=== PATIENT | female | born 1955 | race Caucasian/White ===

== ENCOUNTER 2016-08-12 15:01 | Day surgery (SDC) | payer OTHER ==
[~2016-08-12 15:01] MED LIST: Kenalog-40 IJ ONE; Sensorcaine 0.25% 10 ML IJ ONE
[2016-08-12 17:58] VITALS: BP 130/84; PULSE 61; O2SAT 100
--- NOTE | 2016-08-12 21:07 | XRAY ---
Indication: Left L2-L5 MBB. Intraoperative fluoroscopy was provided for 12 seconds. 1 digital spot image submitted for interpretation demonstrates posterior spinal needles with the tips projecting over the expected course of the left L2-L5 nerve roots. Correlate with intraoperative findings/report.
--- NOTE | 2016-08-13 08:43 | XRAY ---
12 seconds fluoroscopy time in surgery for left LMBB L2-L5.
== END 2016-08-12 19:30 | disposition home or self-care (01) ==
LOC: SDC-PAIN 15:01
PROVIDERS: ATTEND Pain Medicine Interventional Pain Medicine
DX: M47.26 Other spondylosis with radiculopathy, lumbar region (principal); M54.16 Radiculopathy, lumbar region; M51.26 Other intervertebral disc displacement, lumbar region
CPT/HCPCS: 64494; 64495; 64508; 72020; 77003; J3301

== ENCOUNTER 2016-10-07 12:55 | Day surgery (SDC) | payer OTHER ==
[~2016-10-07 12:55] MED LIST changes: +DIPRIVAN 200 MG/20 ML IV ONE; +KEFZOL 1 GM IV ONE; -Kenalog-40 IJ ONE; +Kenalog-40 IM ONE; +Lactated Ringers IV ONE; +SUBLIMAZE 100 MCG/2 ML IV ONE; +TORAdol 30 mg Injection IV ONE; +Xylocaine 1% Vial 30 ML PF IJ ONE
--- NOTE | 2016-10-07 16:35 | XRAY ---
27 seconds of fluoroscopy was used in surgery for a left RFA L2-L5.
--- NOTE | 2016-10-07 16:36 | XRAY ---
Indication: Left L2-L5 RFA. Intraoperative fluoroscopy was provided for 27 seconds. 2 digital spot images submitted for interpretation demonstrates 4 posterior spinal needles with the tips projecting adjacent to the left L3-S1 superior facets. Correlate with intraoperative findings/report.
== END 2016-10-07 15:15 | disposition home or self-care (01) ==
LOC: SDC-PAIN 12:55
PROVIDERS: ATTEND Pain Medicine Interventional Pain Medicine
DX: M47.26 Other spondylosis with radiculopathy, lumbar region (principal); M54.16 Radiculopathy, lumbar region; M51.26 Other intervertebral disc displacement, lumbar region; Z79.891 Long term (current) use of opiate analgesic
CPT/HCPCS: 01936; 64635; 64636; 72100; 77003; J0690; J1885; J2001; J2704; J3010; J3301

== ENCOUNTER 2016-11-04 07:34 | Day surgery (SDC) | payer OTHER ==
[~2016-11-04 07:34] MED LIST changes: -DIPRIVAN 200 MG/20 ML IV ONE; -KEFZOL 1 GM IV ONE; -Kenalog-40 IM ONE; +Lactated Ringers 1,000 ML IV ONE; +Lactated Ringers 1,000 ML IV SCH; -Lactated Ringers IV ONE; -SUBLIMAZE 100 MCG/2 ML IV ONE; -Sensorcaine 0.25% 10 ML IJ ONE; -TORAdol 30 mg Injection IV ONE; -Xylocaine 1% Vial 30 ML PF IJ ONE
[2016-11-04] MEDS ORDERED: DIPRIVAN 200 MG/20 ML IV ONE (08:30)
[2016-11-04] MEDS ORDERED: Ketamine HCl 50 MG/ML IV ONE (08:30)
[2016-11-04 10:00] VITALS: PULSE 53; O2SAT 97
[2016-11-04 10:22] VITALS: BP 112/58
--- NOTE | 2016-11-05 08:07 | OP ---
PROCEDURE DATE/TIME: 11/04/2016 0833 PREOPERATIVE DIAGNOSES: 1) Screening colonoscopy. 2) History of polyps. POSTOPERATIVE DIAGNOSES: 1) Colonic polyp. 2) Mild hemorrhoidal disease. 3) Mild diverticular disease. PROCEDURES: 1) Colonoscopy with hot forceps polypectomy x3. 2) Hot snare polypectomy x1. PROCEDURE PERFORMED BY: Neena Silvestre M.D. ANESTHESIA: MAC. ESTIMATED BLOOD LOSS: Minimal. COMPLICATIONS: None. SPECIMENS: 1) Sigmoid polyp x3. 2) Rectal polyp x1. HISTORY: This is a 61 year-old female who presents for screening colonoscopy. She does have a history of polyps. All risks, benefits, alternatives to colonoscopy as well as the procedure details were discussed with the patient in detail personally and she agreed to proceed. DESCRIPTION OF PROCEDURE: The patient was seen again in the preoperative area. Any remaining questions answered. She was then brought back to the operative suite. Anesthesia was induced. She was laid in left lateral decubitus position. A complete time out was performed. First a rectal exam was done noting external hemorrhoidal tissue. The scope is then entered and carefully advanced towards the cecum. There was a small amount of liquid stool that had to be suctioned free, this could hide a very small or very flat polyp. The mucosa appeared to be quite healthy throughout the colon. As we did advance the scope the patient had multiple polyps. We were able to advance the scope all the way to the cecum. In the cecum we visualized the edge of the ileocecal valve as well as the appendiceal orifice and we carefully withdrew the scope taking a circumferential look. The patient has diverticulosis most pronounced in the sigmoid and descending colon. She did also have three very small sigmoid colon polyps that were taken in their entirety with hot forceps polypectomy. Each site was inspected. The polyps were completely removed and each site was hemostatic. As we continued to withdrawal the scope, there was a more pedunculated, slightly larger polyp which was in the rectum this is taken with a hot snare polypectomy in entirety. The polyp was retrieved. It was too large to fit through the trap so I did have to grasp this with a forceps and completely remove the scope in order to remove this polyp. It did however appear benign and I sent it to pathology. The scope was then reinserted. We did a close surveillance. The polyp in the upper rectum site appeared to be normal, this was at approximately 15 cm. There was no bleeding and then we carefully withdrew the scope. There were no other findings. The patient tolerated the procedure very well. She will follow up with me in approximately one to two weeks to discuss the final pathology results and our plan will be for another colonoscopy in approximately three years pending the final pathology report.
== END 2016-11-04 11:09 | disposition home or self-care (01) ==
LOC: SDC 07:34
PROVIDERS: ATTEND Surgery
PROC: 0DBN8ZX Excision of Sigmoid Colon, Via Natural or Artificial Opening Endoscopic, Diagnostic (ICD-10-PCS; principal; 2016-11-04)
PROC: 0DBM8ZX Excision of Descending Colon, Via Natural or Artificial Opening Endoscopic, Diagnostic (ICD-10-PCS; 2016-11-04)
PROC: 0DBP8ZX Excision of Rectum, Via Natural or Artificial Opening Endoscopic, Diagnostic (ICD-10-PCS; 2016-11-04)
DX: D12.5 Benign neoplasm of sigmoid colon (principal); D12.4 Benign neoplasm of descending colon; K62.1 Rectal polyp; Z86.010 Personal history of colon polyps
CPT/HCPCS: 00810; 36415; 88305; J2704